=== PATIENT | male | born 1970 | race Caucasian/White ===

== ENCOUNTER 2016-05-08 18:54 | Emergency (ER) | payer OTHER ==
--- NOTE | 2016-05-08 20:42 | DX ---
Left Rib Series, Five Views History: Fall on ice, pain. Comparison: None available. Findings: BB marker is placed at the site of the patient's pain. A nondisplaced left lateral fourth rib fracture is present. Lung volumes are low. No displaced rib fracture is identified. Heart size is normal. Moderate stool is present in the proximal colon. Impression: Nondisplaced fourth rib fracture. Findings discussed with Ashley Dimas today at 2039 hours.
--- NOTE | 2016-05-08 20:44 | DX ---
Left Fourth Finger, Three Views History: Trauma, pain. Comparison: None available. Findings: There is a nondisplaced avulsion fracture at the palmar aspect of the base of the middle p halanx. Alignment is normal. Bone mineralization is normal. Minimal osteoarthritis is present, inc luding the distal interphalangeal joint of the second finger. Impression: Nondisplaced volar avulsion fracture.
--- NOTE | 2016-05-08 20:45 | EDPHY ---
H & P Stated Complaint: fall last night/l rib pain/denies l abd pain Time Seen by Provider: 05/08/16 19:07 HPI/ROS: CHIEF COMPLAINT: Left rib pain, left ring finger pain after slip on ice yesterday HISTORY OF PRESENT ILLNESS: 45-year-old male presents emergency department complaining of left-sided rib pain and left ring finger pain after he slipped the ice yesterday and landed on his left side with his elbow tacked in. Patient states his elbow pushed into his chest wall. Pain is worse with movement, worse with deep breath. He denies abdominal pain, no nausea or vomiting. No head strike, no loss of consciousness, remembers the entire accident. Patient reports he jammed his left ring finger when he fell, this is tender with range of motion, no numbness or tingling to this. REVIEW OF SYSTEMS: A comprehensive 10 point review of systems is otherwise negative aside from elements mentioned in the history of present illness. Source: Patient Exam Limitations: No limitations - Personal History Current Tetanus/Diphtheria Vaccine: Yes - Medical/Surgical History Hx Asthma: No Hx Chronic Respiratory Disease: No Hx Diabetes: No Hx Cardiac Disease: No Hx Renal Disease: No Hx Cirrhosis: No Hx Alcoholism: No Hx HIV/AIDS: No Hx Splenectomy or Spleen Trauma: No Other PMH: denies - Social History Smoking Status: Never smoked - Physical Exam Exam: Physical Exam Gen: Alert and Oriented, NAD HEENT: PERRL, moist mucous membranes NECK: No cervical spine tenderness to palpation CV: regular rate and regular rhythm PULM: CTAB, no wheezes Chest wall: Left-sided nipple line anterior and lateral chest tenderness to palpation, no swelling or ecchymosis ABDOMEN: soft, non tender to palpation, specifically no left upper quadrant tenderness, BS present BACK: No CVA tenderness NEURO: Neurologically grossly intact EXTREMITIES: Left ring finger with swelling and ecchymosis, tenderness to palpation to PIP joint, sensation intact to light touch, full range of motion SKIN: no rash or break in skin on exposed skin PSYCH: answers questions appropriately. Constitutional: Initial Vital Signs Temperature (C) 36.6 C 05/08/16 19:01 Heart Rate 66 05/08/16 19:01 Respiratory Rate 16 05/08/16 19:01 Blood Pressure 127/72 H 05/08/16 19:01 O2 Sat (%) 97 05/08/16 19:01 O2 Delivery Mode Room Air Allergies/Adverse Reactions: No Known Allergies Allergy (Unverified 05/08/16 19:01) Home Medications: Medication Instructions Recorded Hydrocodone/APAP 5/325 [[place] 1 tab PO Q4H PRN #7 tab 05/08/16 5/325] Lipitor 05/08/16 Medical Decision Making - Diagnostics Imaging: Chest x-ray independently reviewed by me- Nondisplaced left 4th rib fracture Left ring finger x-ray independently reviewed by me- Avulsion fracture middle phalanx Procedures: A aluminum finger splint was applied. After application of the splint, I returned and re-examined the patient. The splint was adequately immobilizing the joint. The patients circulation and sensation were intact distal to the splint. ED Course/Re-evaluation: 45-year-old male presents with left-sided rib pain after a fall on ice. Patient has clear lung sounds, room air oxygen saturation is 97%. Chest x-ray shows a left nondisplaced posterior lateral rib fracture. He also has a left ring finger middle phalanx fracture. Patient will be discharged home with a prescription for Vicodin and an incentive spirometer. He is given return precautions for any cough, fevers, pain that is not controlled. I have recommended ice, ibuprofen. Patient is comfortable with this plan. He is placed in a splint for his finger fracture and given Ortho for follow-up. - Data Points Medications Given: Discontinued Medications Acetaminophen/Hydrocodone Bitart ([place] 5/325mg Prepack#6) 1 btl TAKEOLIVIA EDNOW ONE Stop: 05/08/16 20:50 Last Admin: 05/08/16 21:06 Dose: 1 btl Departure - Departure Disposition: Home, Routine, Self-Care Clinical Impression: Left rib fracture Qualifiers: Encounter type: initial encounter Rib fracture type: single rib Fracture type: closed Qualifier Code: (S22.32XA) Fracture of one rib, left side, initial encounter for closed fracture Fracture of proximal phalanx of left ring finger Qualifiers: Encounter type: initial encounter Fracture type: closed Fracture alignment: nondisplaced Qualifier Code: (S62.645A) Nondisplaced fracture of proximal phalanx of left ring finger, initial encounter for closed fracture Condition: Good Instructions: Hydrocodone/Acetaminophen (By mouth), How to Use an Incentive Spirometer (ED), Finger Fracture (ED), Rib Fracture (ED) Additional Instructions: Take 600 mg of ibuprofen every 8 hours with food for 3-5 days, ice to your chest and finger. Use the incentive spirometer 10 times an hour while awake, cough and deep breathe frequently. Take [place] as needed for severe pain. Return to the emergency department for pain that is not controlled, difficulty breathing, fevers, cough. Follow up with the orthopedist for your finger at 1st available appointment. Wear finger splint until your follow-up appointment. Referrals: Lynette Caldwell MD [Medical Doctor] - As per Instructions (Orthopedist on-call) Prescriptions: Hydrocodone/APAP 5/325 [[place] 5/325] 1 tab PO Q4H PRN #7 tab PRN Reason: Pain, Moderate
[2016-05-08] MEDS ORDERED: HYDROCOD/APAP 5/325 PREPACK#6 BTL TAKEHOME ONE (20:49)
[2016-05-08 21:18] VITALS: BP 134/83; PULSE 83; RESP 20; TEMP 98.2; O2SAT 95
== END 2016-05-08 21:18 | disposition home or self-care (01) ==
DX: S22.32XA Fracture of one rib, left side, initial encounter for closed fracture (principal); S62.645A Nondisplaced fracture of proximal phalanx of left ring finger, initial encounter for closed fracture; W00.0XXA Fall on same level due to ice and snow, initial encounter
CPT/HCPCS: L3925